=== PATIENT | female | born 1940 | race Caucasian/White ===

== ENCOUNTER 2020-02-09 06:21 | Day surgery (SDC) | payer MEDICARE, OTHER, SELFPAY ==
[2020-02-09 06:38] VITALS: BP 126/72; PULSE 93; RESP 18; TEMP 36.4; O2SAT 95
[2020-02-09] MEDS: Lactated Ringers 1,000 ML 100 ML IV (06:57)
--- NOTE | 2020-02-09 07:53 | ENDO_PTH ---
PATIENT: Stephanie Krueger LOC: [facility] U#:[id number] AGE/SX: 79/F ROOM: RE02/09/[address]: Bill Michelle MD : [id number] BED: DIS: 02/09/2020 SPEC #: [id number] RECD: 02/09/20 12:34 STATUS: ELENI REQ #: [id number] MARKY: 02/09/20 07:[address]: Bill Michelle DEPT: Surgical Specimen RECD BY: Soumya Moran ENTERED: 02/09/20 12:35 SP TYPE: Endo OTHR DR: Randolph Aldrich Tissues: 1 - ENDOCERVICAL BX/CURRETTE 2 - ENDOMETRIUM BX/CURRETTE Procedures: GROSS AND MICRO LEVEL 4 Comments: [id number]
[2020-02-09] MEDS: Lidocaine 1% Multi-Dose 50 ML VIAL (07:59)
--- NOTE | 2020-02-09 08:07 | ROE_ITS ---
Date of service: 02/09/20 Time of Service: 08:07 Operative Note Operative Note DATE OF PROCEDURE: 02/09/20 PRE-OP DIAGNOSIS: 1. Postmenopausal bleeding 2. Thick endometrium on ultrasound POST-OP DIAGNOSIS: same PROCEDURE: Hysteroscopy D&C SURGEON: Bill Michelle ANESTHESIA: MAC ESTIMATED BLOOD LOSS: 10 PATHOLOGY: other (1. Endocervical curettings 2. Endometrial curettings) COMPLICATIONS: None Patient was transported to: same day Patient's condition: stable Findings: 1. 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 Thin and atrophic appearing endometrium with no space-occupying lesions. No hysteroscopic evidence for malignancy or hyperplasia Procedure Description: The patient was taken to the operating room and after adequate sedation was achieved the patient placed in lithotomy position. The patient was prepped and draped in the usual sterile manner. A weighted speculum was placed in the vagina with good visualization of the cervix. The anterior lip of the cervix was grasped with a single-tooth tenaculum. A paracervical block with 10 cc 1% plain lidocaine solution was instilled. The 5 mm 30 degree hysteroscope with normal saline distention media was advanced through the cervix. There was a patch of dense intrauterine synechiae at home junction of the lower segment and internal os. This was taken down with a uterine sound. The hysteroscope was able to be advanced into the uterine cavity through the synechiae. Hysteroscopic exam was essentially normal beyond that point. The endometrium was thin and atrophic throughout. There were no polyps. Endocervical curettings were obtained with a Kevorkian curette. A sharp curettage of the endometrial cavity with a sharp loop curette was performed and endometrial curettings were submitted as a separate specimen. The procedure was concluded at this point. All instrumentation was removed. The patient kinjal ated the procedure well and was transferred to same-day surgery in stable condition.
[2020-02-09 08:30] VITALS: BP 118/69; PULSE 72; RESP 18; TEMP 36.4; O2SAT 98
--- NOTE | 2020-02-09 08:48 | W.PM.DSUDISC ---
Discharge Plan Disposition Patient Disposition: HOME Condition: Good Discharge Details Attending Provider: Bill Michelle Primary Care Provider: Randolph Aldrich Home Meds and New Rx's Prescriptions: Continued olanzapine 10 mg tablet 10 mg PO HS RF: 0 divalproex [Depakote ER] 250 mg tablet extended release 24 hr 250 mg PO BID RF: 0 clomipramine 50 mg capsule 50 mg PO DAILY RF: 0 levothyroxine 25 mcg tablet 112 mcg PO DAILY RF: 0 Discharge Instructions Stand Alone Forms: [facility] Post Gynecology Surgery, Catalina Hicks ([facility]) Activity:: Activity as Tolerated Diet:: As Tolerated Discharge Orders Discharge Orders: Discharge Order (Routine); Ordered 02/09/20 Ordered By: Bill Michelle DS: Diagnosis Discharge Diagnosis (1) Pyometra: Status: Acute (2) Post-menopausal bleeding: Status: Acute
== END 2020-02-09 09:13 | disposition home or self-care (01) ==
PROVIDERS: PCP Family Medicine; Visit Provider Obstetrics & Gynecology
PROC: 0UDB8ZZ Extraction of Endometrium, Via Natural or Artificial Opening Endoscopic (ICD-10-PCS; CPT 58558; principal; 2020-02-09 07:30)
DX: N95.0 Postmenopausal bleeding (principal); R93.89 Abnormal findings on diagnostic imaging of other specified body structures; E03.9 Hypothyroidism, unspecified
CPT/HCPCS: 58558; 88305; J1100; J2405